=== PATIENT | female | born 2005 | race Caucasian/White ===

== ENCOUNTER → 2023-09-22 14:45 | Outpatient (REF) | payer BC, SELFPAY | LOC: RCS 14:45 | PROVIDERS: ATTENDING PHYSICIAN Nurse Practitioner Family | DX: R01.1 Cardiac murmur, unspecified (principal) | CPT/HCPCS: 93306 ==

== ENCOUNTER → 2024-09-03 07:42 | Outpatient (REF) | payer BC, SELFPAY | LOC: HWRAD 07:42 | PROVIDERS: ATTENDING PHYSICIAN Nurse Practitioner Family | DX: N28.9 Disorder of kidney and ureter, unspecified (principal) | CPT/HCPCS: 76770 ==

== ENCOUNTER → 2024-09-12 08:19 | Outpatient (REF) | payer BC, SELFPAY | LOC: RCS 08:19 | PROVIDERS: ATTENDING PHYSICIAN Nurse Practitioner Family | DX: R01.1 Cardiac murmur, unspecified (principal) | CPT/HCPCS: 93306 ==